=== PATIENT | female | born 1935 | race Caucasian/White ===

== ENCOUNTER 2017-04-24 08:21 | Observation (INO) ==
[2017-04-24 09:31] LABS: Basophils % 0.4 % (0.0-0.8); Eosinophils # 0.1 10*3/uL (0.0-0.87); Eosinophils % 1.4 % (0.00-10.9); Hematocrit 36.5 VOL% (35.7-47.0); Hemoglobin 12.3 GM/DL (12.0-16.0); Immature Granulocytes % 0.5 %; Immature Granulocytes Absolute 0.04 #; Lymphocytes # 1.7 10*3/uL (1.4-4.0); Lymphocytes % 21.8 % (21.3-54.2); Mean Corpuscular HGB Conc 33.7 GM/DL (32-36); Mean Corpuscular Hemoglobin 31 PG (27-34); Mean Corpuscular Volume 91.3 FL (87-102); Mean Platelet Volume 9.1 FL (9.6-12.0); Monocytes # 0.7 10*3/uL (0.11-0.8); Neutrophils # 5.3 10*3/uL (1.4-7.4); Neutrophils % 66.9 % (38.7-73.9); Platelet Count 430 T/CUMM (130-400); Red Cell Distribution Width 13.1 % (9.3-17.3); White Blood Count 7.9 T/CUMM (4-12)
[2017-04-24 09:40] LABS: INR 0.9; Partial Thromboplastin Time 23.3 SECS (0-40)
[2017-04-24 09:41] LABS: Apearance,Urine CLEAR (Clear); Bilirubin,Urine Negative (Negative); Blood, Urine Small mg/dL (Negative); Glucose,Urine (UA) Negative (Negative); Ketones,Urine Negative (Negative); Nitrite,Urine Negative (Negative); Protein,Urine Negative; RBC,Urine <1 /HPF (0-4); Squamous Epithelial Cell,Urine Occasional /HPF (0-10); Urine Color Straw (Yellow); Urine Specific Gravity 1.006 (1.001-1.035); Urine Urobilinogen < 2.0 EU/DL (0.2-1.0); WBC,Urine <1 /HPF (0-6)
[2017-04-24 09:44] LABS: Albumin 3.3 G/DL (3.4-5.0); Bilirubin,Total 0.6 MG/DL (0.2-1.0); Calcium 9.1 MG/DL (8.5-10.1); Osmolality,Calculated 276.7 MOS/KG (273-304); Potassium 4.2 MMOL/L (3.5-5.1); Total Protein 7.4 G/DL (6.4-8.3)
[2017-04-24] MEDS ORDERED: ASPIRIN 325 MG TABLET PO STA (12:40)
[2017-04-24] MEDS ORDERED: ASPIRIN 325 MG TABLET ONE (12:41)
[2017-04-24] MEDS ORDERED: TEMAZEPAM 7.5 MG CAPSULE PO PRN (14:09)
[2017-04-24] MEDS ORDERED: chlorproMAZINE INJ 50 MG in SODIUM CHLORIDE 0.9% 100 ML IV PRN (14:09)
[2017-04-24] MEDS ORDERED: LACTULOSE 20 GM/30 ML UDCUP PO PRN (14:09)
[2017-04-24] MEDS ORDERED: ALUMINUM/MAGNES/SIMETH MAX STR 30 ML UDCUP PO PRN (14:09)
[2017-04-24] MEDS ORDERED: LOPERAMIDE 2 MG CAPSULE PO PRN ×2 (14:09)
[2017-04-24] MEDS ORDERED: BENZTROPINE 2 MG/2 ML AMP IV PRN (14:09)
[2017-04-24] MEDS ORDERED: ACETAMINOPHEN 325 MG TABLET PO PRN (14:09)
[2017-04-24] MEDS ORDERED: MYLANTA/LIDO VISC 2:1 300 ML BOTTLE SWISH/SWAL PRN (14:09)
[2017-04-24] MEDS ORDERED: MYLANTA/LIDO VISC 2:1 300 ML BOTTLE SWISH/SPIT PRN (14:09)
[2017-04-24] MEDS ORDERED: diphenhydrAMINE CAP 25 MG CAPSULE PO PRN (14:09)
[2017-04-24] MEDS ORDERED: guaiFENesin 200 MG/10 ML UDCUP PO PRN (14:09)
[2017-04-24] MEDS ORDERED: ALPRAZolam 0.25 MG TABLET PO PRN (14:09)
[2017-04-24] MEDS ORDERED: ONDANSETRON 4 MG/2 ML VIAL IV PRN (14:09)
[2017-04-24] MEDS ORDERED: chlorproMAZINE INJ 25 MG in SODIUM CHLORIDE 0.9% 100 ML IV PRN (14:09)
[2017-04-24] MEDS ORDERED: PROMETHAZINE INJ 25 MG in SODIUM CHLORIDE 0.9% 50 ML IV PRN (14:09)
[2017-04-24] MEDS ORDERED: chlorproMAZINE 25 MG TABLET PO PRN (14:09)
[2017-04-24] MEDS ORDERED: MAGNESIUM HYDROXIDE SUSP 30 ML UDCUP PO PRN (14:09)
[2017-04-24] MEDS: SODIUM CHLORIDE 0.9% 1,000 ML IV SCH (15:32)
[2017-04-24 16:26] LABS: Basophils % 0.3 % (0.0-0.8); Eosinophils # 0.1 10*3/uL (0.0-0.87); Eosinophils % 1.4 % (0.00-10.9); Hematocrit 35.4 VOL% (35.7-47.0); Hemoglobin 11.8 GM/DL (12.0-16.0); Immature Granulocytes % 0.3 %; Immature Granulocytes Absolute 0.02 #; Lymphocytes # 1.4 10*3/uL (1.4-4.0); Lymphocytes % 17.6 % (21.3-54.2); Mean Corpuscular HGB Conc 33.3 GM/DL (32-36); Mean Corpuscular Hemoglobin 30 PG (27-34); Mean Corpuscular Volume 90.5 FL (87-102); Monocytes # 0.8 10*3/uL (0.11-0.8); Monocytes % 10.1 % (1.7-12.7); Neutrophils # 5.4 10*3/uL (1.4-7.4); Neutrophils % 70.3 % (38.7-73.9); Platelet Count 441 T/CUMM (130-400); Red Blood Count 3.91 MC/CUMM (3.8-5.5); Red Cell Distribution Width 13.2 % (9.3-17.3); White Blood Count 7.7 T/CUMM (4-12)
[2017-04-24 18:08] LABS: Albumin 3.3 G/DL (3.4-5.0); Bilirubin,Total 0.6 MG/DL (0.2-1.0); Calcium 9.3 MG/DL (8.5-10.1); Magnesium 2.5 MG/DL (1.8-2.4); Osmolality,Calculated 279.4 MOS/KG (273-304); Potassium 3.5 MMOL/L (3.5-5.1); Total Protein 7.5 G/DL (6.4-8.3); Uric Acid 2.3 MG/DL (2.6-6.0)
[2017-04-25] MEDS: SODIUM CHLORIDE 0.9% 1,000 ML IV SCH (05:32)
[2017-04-25] MEDS ORDERED: hydrOXYzine HCL 25 MG TABLET PO PRN (08:41)
[2017-04-25] MEDS ORDERED: Aspirin/Sod Bicarb/Citric Acid [Alka-Seltzer Original Tab Eff] 1 PO PRN (08:41)
[2017-04-25] MEDS ORDERED: ASCORBIC ACID 500 MG TABLET PO SCH (09:00)
[2017-04-25] MEDS ORDERED: Erlotinib Hcl [Tarceva] 100 MG PO SCH (09:00)
[2017-04-25] MEDS ORDERED: ALBUTEROL 2.5 MG/3 ML NEB RESP TX PRN (09:00)
[2017-04-25] MEDS ORDERED: ASPIRIN 325 MG TABLET PO SCH (09:00)
[2017-04-25] MEDS ORDERED: Flaxseed Oil [Flaxseed Oil] 1,000 MG PO SCH (09:00)
[2017-04-25] MEDS ORDERED: HEPARIN LOCK FLUSH 500 UNIT/5 ML SYRINGE IV ONE (09:15)
[2017-04-25] MEDS ORDERED: IPRATROPIUM 500 MCG/2.5 ML NEB RESP TX SCH (12:00)
[2017-04-25 12:29] VITALS: BP 143/65
[2017-04-25] MEDS ORDERED: ATORVASTATIN 10 MG TABLET PO SCH (21:00)
[2017-04-25] MEDS ORDERED: ACETAMINOPHEN 500 MG TABLET PO SCH (21:00)
== END 2017-04-25 16:55 | disposition home or self-care (01) ==
LOC: N.ED 08:21 → N.EDINP 08:21 → N.4E 13:53
PROVIDERS: ADMIT Specialist; ATTEND Specialist

== ENCOUNTER 2018-03-13 10:30 | Inpatient (IN) ==
[2018-03-13 11:52] LABS: Basophils % 0.2 % (0.0-0.8); Eosinophils # 0.1 10*3/uL (0.0-0.87); Eosinophils % 0.6 % (0.00-10.9); Hematocrit 29.6 VOL% (35.7-47.0); Hemoglobin 9.4 GM/DL (12.0-16.0); Immature Granulocytes % 0.4 %; Immature Granulocytes Absolute 0.05 #; Lymphocytes # 0.6 10*3/uL (1.4-4.0); Lymphocytes % 4.8 % (21.3-54.2); Mean Corpuscular HGB Conc 31.8 GM/DL (32-36); Mean Corpuscular Hemoglobin 28 PG (27-34); Mean Corpuscular Volume 87.1 FL (87-102); Mean Platelet Volume 9.6 FL (9.6-12.0); Monocytes # 0.7 10*3/uL (0.11-0.8); Monocytes % 5.6 % (1.7-12.7); Neutrophils # 10.2 10*3/uL (1.4-7.4); Neutrophils % 88.4 % (38.7-73.9); Platelet Count 485 T/CUMM (130-400); Red Cell Distribution Width 15.1 % (9.3-17.3); White Blood Count 11.6 T/CUMM (4-12)
[2018-03-13 12:14] LABS: Hypochromasia 1+
[2018-03-13 12:15] LABS: Platelet Estimate Adequate
[2018-03-13 12:37] LABS: Albumin 2.8 G/DL (3.4-5.0); Bilirubin,Total 0.4 MG/DL (0.2-1.0); Calcium 8.7 MG/DL (8.5-10.1); Osmolality,Calculated 279.4 MOS/KG (273-304); Potassium 3.6 MMOL/L (3.5-5.1); Total Protein 6.5 G/DL (6.4-8.3)
[2018-03-13 12:52] LABS: INR 1.1; PT Patient Result 11.1 SECS
[2018-03-13 12:58] LABS: Partial Thromboplastin Time 51.2 SECS (0-40)
[2018-03-13 13:43] LABS: ABG Base Excess 11.8 MMOL/L (-2.5-2.5); ABG HCO3 35.5 MMOL/L (20-26); ABG Oxygen Saturation 97.1 % (95-100); ABG PO2 92.3 MM HG (80-95); ABG TCO2 37.2 MMOL/L (23-27)
[2018-03-13] MEDS ORDERED: guaiFENesin 200 MG/10 ML UDCUP PO PRN (14:30)
[2018-03-13] MEDS ORDERED: chlorproMAZINE INJ 50 MG in SODIUM CHLORIDE 0.9% 100 ML IV PRN (14:30)
[2018-03-13] MEDS ORDERED: traMADol 50 MG TABLET PO PRN (14:30)
[2018-03-13] MEDS ORDERED: BENZTROPINE 2 MG/2 ML AMP IV PRN (14:30)
[2018-03-13] MEDS ORDERED: TEMAZEPAM 7.5 MG CAPSULE PO PRN (14:30)
[2018-03-13] MEDS ORDERED: MYLANTA/LIDO VISC 2:1 300 ML BOTTLE SWISH/SWAL PRN (14:30)
[2018-03-13] MEDS ORDERED: chlorproMAZINE 25 MG TABLET PO PRN (14:30)
[2018-03-13] MEDS ORDERED: MAGNESIUM HYDROXIDE SUSP 30 ML UDCUP PO PRN (14:30)
[2018-03-13] MEDS ORDERED: LACTULOSE 20 GM/30 ML UDCUP PO PRN (14:30)
[2018-03-13] MEDS ORDERED: MYLANTA/LIDO VISC 2:1 300 ML BOTTLE SWISH/SPIT PRN (14:30)
[2018-03-13] MEDS ORDERED: chlorproMAZINE INJ 25 MG in SODIUM CHLORIDE 0.9% 100 ML IV PRN (14:30)
[2018-03-13] MEDS ORDERED: ALUMINUM/MAGNES/SIMETH MAX STR 30 ML UDCUP PO PRN (14:30)
[2018-03-13] MEDS ORDERED: diphenhydrAMINE CAP 25 MG CAPSULE PO PRN (14:30)
[2018-03-13] MEDS ORDERED: PROMETHAZINE INJ 25 MG in SODIUM CHLORIDE 0.9% 50 ML IV PRN (14:30)
[2018-03-13] MEDS ORDERED: LOPERAMIDE 2 MG CAPSULE PO PRN ×2 (14:30)
[2018-03-13] MEDS ORDERED: ACETAMINOPHEN 325 MG TABLET PO PRN ×2 (14:30)
[2018-03-13] MEDS ORDERED: DOCUSATE SODIUM 100 MG CAPSULE PO PRN (14:30)
[2018-03-13] MEDS ORDERED: PREGABALIN 50 MG CAPSULE PO PRN (14:36)
[2018-03-13] MEDS ORDERED: ALBUTEROL 2.5 MG/3 ML NEB RESP TX PRN (14:36)
[2018-03-13 15:22] LABS: Uric Acid 1.1 MG/DL (2.6-6.0)
[2018-03-13] MEDS: VANCOMYCIN INJ 500 MG in SODIUM CHLORIDE 0.9% 100 ML IV SCH (17:41)
[2018-03-13] MEDS: ALPRAZolam 0.25 MG TABLET PO PRN (17:45)
[2018-03-13] MEDS ORDERED: ALBUTEROL/IPRATROPIUM 3 ML NEB RESP TX SCH (18:00)
[2018-03-13] MEDS: methylPREDNISolone SOD SUC 40 MG/1 ML VIAL IV SCH (18:35)
[2018-03-13] MEDS: IPRATROPIUM 500 MCG/2.5 ML NEB RESP TX SCH (19:47)
[2018-03-13] MEDS: ATORVASTATIN 10 MG TABLET PO SCH (20:53)
[2018-03-13] MEDS: PIPERACILLIN/TAZOBACTAM 3,375 MG in SODIUM CHLORIDE 0.9% 100 ML IV SCH (20:53)
[2018-03-13] MEDS: ENOXAPARIN 40 MG/0.4 ML SYRINGE SUBCUT SCH (20:53)
[2018-03-13] MEDS: ALBUTEROL/IPRATROPIUM 3 ML NEB RESP TX SCH (23:00)
[2018-03-14] MEDS: ALBUTEROL/IPRATROPIUM 3 ML NEB RESP TX SCH ×6 (03:17→23:57)
[2018-03-14] MEDS: IPRATROPIUM 500 MCG/2.5 ML NEB RESP TX SCH ×2 (03:18→11:03)
[2018-03-14] MEDS: methylPREDNISolone SOD SUC 40 MG/1 ML VIAL IV SCH ×3 (03:37→18:34)
[2018-03-14] MEDS: PIPERACILLIN/TAZOBACTAM 3,375 MG in SODIUM CHLORIDE 0.9% 100 ML IV SCH ×3 (03:38→20:42)
[2018-03-14] MEDS: ONDANSETRON 4 MG/2 ML VIAL IV PRN (03:45)
[2018-03-14 07:00] LABS: Basophils % 0.1 % (0.0-0.8); Hematocrit 27.1 VOL% (35.7-47.0); Hemoglobin 8.4 GM/DL (12.0-16.0); Immature Granulocytes % 0.5 %; Immature Granulocytes Absolute 0.04 #; Lymphocytes # 0.4 10*3/uL (1.4-4.0); Lymphocytes % 5.3 % (21.3-54.2); Mean Corpuscular Hemoglobin 28 PG (27-34); Mean Corpuscular Volume 88.9 FL (87-102); Mean Platelet Volume 9.7 FL (9.6-12.0); Monocytes # 0.4 10*3/uL (0.11-0.8); Monocytes % 4.3 % (1.7-12.7); Neutrophils # 7.3 10*3/uL (1.4-7.4); Neutrophils % 89.8 % (38.7-73.9); Platelet Count 445 T/CUMM (130-400); Red Blood Count 3.05 MC/CUMM (3.8-5.5); White Blood Count 8.2 T/CUMM (4-12)
[2018-03-14 07:34] LABS: Albumin 2.3 G/DL (3.4-5.0); Bilirubin,Total 0.6 MG/DL (0.2-1.0); Calcium 7.6 MG/DL (8.5-10.1); Osmolality,Calculated 284.1 MOS/KG (273-304); Potassium 3.8 MMOL/L (3.5-5.1); Risk Ratio 2.2; Total Protein 5.3 G/DL (6.4-8.3); VLDL CHOLESTEROL 17.2 MG/DL
[2018-03-14] MEDS: VANCOMYCIN INJ 500 MG in SODIUM CHLORIDE 0.9% 100 ML IV SCH ×2 (08:16→18:34)
[2018-03-14] MEDS ORDERED: Erlotinib Hcl [Tarceva] 100 MG PO SCH (09:00)
[2018-03-14] MEDS: predniSONE 10 MG TABLET PO SCH (09:55)
[2018-03-14] MEDS: PANTOPRAZOLE 40 MG TABLET PO SCH (10:00)
[2018-03-14] MEDS: hydrOXYzine HCL 25 MG TABLET PO SCH (10:00)
[2018-03-14] MEDS ORDERED: FUROSEMIDE 20 MG/2 ML VIAL IM ONE (10:48)
[2018-03-14] MEDS: ASPIRIN 325 MG TABLET PO SCH (11:49)
[2018-03-14] MEDS: DEXTROSE 5% NACL 0.45% 1,000 ML IV SCH (19:21)
[2018-03-14] MEDS: ALPRAZolam 0.25 MG TABLET PO PRN (20:57)
[2018-03-14] MEDS: ENOXAPARIN 40 MG/0.4 ML SYRINGE SUBCUT SCH (20:58)
[2018-03-14] MEDS: ATORVASTATIN 10 MG TABLET PO SCH (20:58)
[2018-03-15] MEDS ORDERED: NITROGLYCERIN SL 0.4 MG TABLET SL ONE ×2 (00:44→00:45)
[2018-03-15] MEDS ORDERED: NITROGLYCERIN SL 0.4 MG TABLET SL PRN (00:49)
[2018-03-15 01:58] LABS: Basophils % 0.1 % (0.0-0.8); Hematocrit 26.5 VOL% (35.7-47.0); Hemoglobin 8.3 GM/DL (12.0-16.0); Immature Granulocytes % 0.5 %; Immature Granulocytes Absolute 0.08 #; Lymphocytes # 0.3 10*3/uL (1.4-4.0); Lymphocytes % 2.1 % (21.3-54.2); Mean Corpuscular HGB Conc 31.3 GM/DL (32-36); Mean Corpuscular Hemoglobin 28 PG (27-34); Mean Corpuscular Volume 87.7 FL (87-102); Mean Platelet Volume 9.5 FL (9.6-12.0); Monocytes # 0.9 10*3/uL (0.11-0.8); Monocytes % 5.7 % (1.7-12.7); Neutrophils # 13.9 10*3/uL (1.4-7.4); Neutrophils % 91.6 % (38.7-73.9); Platelet Count 469 T/CUMM (130-400); Red Blood Count 3.02 MC/CUMM (3.8-5.5); Red Cell Distribution Width 15.1 % (9.3-17.3); White Blood Count 15.1 T/CUMM (4-12)
[2018-03-15 02:16] LABS: Albumin 2.6 G/DL (3.4-5.0); Bilirubin,Total 0.7 MG/DL (0.2-1.0); Calcium 8.4 MG/DL (8.5-10.1); Osmolality,Calculated 284.5 MOS/KG (273-304)
[2018-03-15 02:17] LABS: Troponin I 0.015 NG/ML (0.00-0.045)
[2018-03-15] MEDS: methylPREDNISolone SOD SUC 40 MG/1 ML VIAL IV SCH ×3 (02:18→18:00)
[2018-03-15 03:09] LABS: Band Neutrophils 3 % (0-10); Lymphocytes 6 % (20-55); Platelet Estimate Normal; Segmented Neutrophils 89 % (50-85); Total Cells Counted 100
[2018-03-15] MEDS: PIPERACILLIN/TAZOBACTAM 3,375 MG in SODIUM CHLORIDE 0.9% 100 ML IV SCH ×3 (03:19→20:10)
[2018-03-15] MEDS: LEVALBUTEROL 1.25 MG/3 ML NEB RESP TX SCH ×6 (03:46→23:42)
[2018-03-15] MEDS: VANCOMYCIN INJ 500 MG in SODIUM CHLORIDE 0.9% 100 ML IV SCH ×2 (07:30→18:00)
[2018-03-15] MEDS: PANTOPRAZOLE 40 MG TABLET PO SCH (09:01)
[2018-03-15] MEDS: hydrOXYzine HCL 25 MG TABLET PO SCH (09:01)
[2018-03-15] MEDS: predniSONE 10 MG TABLET PO SCH (09:01)
[2018-03-15] MEDS: ASPIRIN 325 MG TABLET PO SCH (13:15)
[2018-03-15] MEDS: DEXTROSE 5% NACL 0.45% 1,000 ML IV SCH (16:25)
[2018-03-15] MEDS: ENOXAPARIN 40 MG/0.4 ML SYRINGE SUBCUT SCH (20:13)
[2018-03-15] MEDS: ATORVASTATIN 10 MG TABLET PO SCH (20:14)
[2018-03-15] MEDS: ALPRAZolam 0.25 MG TABLET PO PRN (20:16)
[2018-03-15] MEDS: ONDANSETRON 4 MG/2 ML VIAL IV PRN (20:16)
[2018-03-16] MEDS: methylPREDNISolone SOD SUC 40 MG/1 ML VIAL IV SCH ×3 (01:47→18:14)
[2018-03-16] MEDS: VANCOMYCIN INJ 500 MG in SODIUM CHLORIDE 0.9% 100 ML IV SCH ×3 (01:47→18:15)
[2018-03-16] MEDS: LEVALBUTEROL 1.25 MG/3 ML NEB RESP TX SCH ×6 (03:39→22:34)
[2018-03-16] MEDS: PIPERACILLIN/TAZOBACTAM 3,375 MG in SODIUM CHLORIDE 0.9% 100 ML IV SCH ×3 (04:00→20:36)
[2018-03-16 05:21] LABS: Basophils % 0.1 % (0.0-0.8); Hematocrit 26.7 VOL% (35.7-47.0); Hemoglobin 8.3 GM/DL (12.0-16.0); Immature Granulocytes % 0.7 %; Immature Granulocytes Absolute 0.09 #; Lymphocytes # 0.3 10*3/uL (1.4-4.0); Lymphocytes % 2.1 % (21.3-54.2); Mean Corpuscular HGB Conc 31.1 GM/DL (32-36); Mean Corpuscular Hemoglobin 27 PG (27-34); Mean Corpuscular Volume 87.5 FL (87-102); Mean Platelet Volume 9.4 FL (9.6-12.0); Monocytes # 0.5 10*3/uL (0.11-0.8); Monocytes % 3.8 % (1.7-12.7); Neutrophils % 93.3 % (38.7-73.9); Platelet Count 447 T/CUMM (130-400); Red Blood Count 3.05 MC/CUMM (3.8-5.5); Red Cell Distribution Width 15.3 % (9.3-17.3); White Blood Count 12.8 T/CUMM (4-12)
[2018-03-16 05:49] LABS: Albumin 2.5 G/DL (3.4-5.0); Bilirubin,Total 0.7 MG/DL (0.2-1.0); Calcium 8.6 MG/DL (8.5-10.1); Osmolality,Calculated 282.4 MOS/KG (273-304); Total Protein 5.8 G/DL (6.4-8.3)
[2018-03-16 05:56] LABS: Band Neutrophils 1 % (0-10); Lymphocytes 2 % (20-55); Platelet Estimate Normal; Segmented Neutrophils 97 % (50-85); Total Cells Counted 100
[2018-03-16] MEDS: predniSONE 10 MG TABLET PO SCH (08:48)
[2018-03-16] MEDS: PANTOPRAZOLE 40 MG TABLET PO SCH (08:48)
[2018-03-16] MEDS: hydrOXYzine HCL 25 MG TABLET PO SCH (08:52)
[2018-03-16] MEDS: ASPIRIN 325 MG TABLET PO SCH (11:29)
[2018-03-16] MEDS: DEXTROSE 5% NACL 0.45% 1,000 ML IV SCH (18:14)
[2018-03-16] MEDS: ENOXAPARIN 40 MG/0.4 ML SYRINGE SUBCUT SCH (20:41)
[2018-03-16] MEDS: ATORVASTATIN 10 MG TABLET PO SCH (20:43)
[2018-03-16] MEDS: ALPRAZolam 0.25 MG TABLET PO PRN (20:43)
[2018-03-17] MEDS: VANCOMYCIN INJ 500 MG in SODIUM CHLORIDE 0.9% 100 ML IV SCH ×3 (01:34→18:02)
[2018-03-17] MEDS: methylPREDNISolone SOD SUC 40 MG/1 ML VIAL IV SCH ×3 (01:37→18:01)
[2018-03-17] MEDS: ALPRAZolam 0.25 MG TABLET PO PRN ×2 (01:40→12:54)
[2018-03-17] MEDS: LEVALBUTEROL 1.25 MG/3 ML NEB RESP TX SCH ×6 (02:51→23:20)
[2018-03-17] MEDS: PIPERACILLIN/TAZOBACTAM 3,375 MG in SODIUM CHLORIDE 0.9% 100 ML IV SCH ×3 (05:04→23:22)
[2018-03-17] MEDS: predniSONE 10 MG TABLET PO SCH (10:45)
[2018-03-17] MEDS: PANTOPRAZOLE 40 MG TABLET PO SCH (10:45)
[2018-03-17] MEDS: hydrOXYzine HCL 25 MG TABLET PO SCH (10:47)
[2018-03-17] MEDS: ASPIRIN 325 MG TABLET PO SCH ×2 (12:55→13:08)
[2018-03-17] MEDS: ONDANSETRON 4 MG/2 ML VIAL IV PRN (13:06)
[2018-03-17] MEDS: DEXTROSE 5% NACL 0.45% 1,000 ML IV SCH (16:51)
[2018-03-17] MEDS: ATORVASTATIN 10 MG TABLET PO SCH (23:21)
[2018-03-17] MEDS: ENOXAPARIN 40 MG/0.4 ML SYRINGE SUBCUT SCH (23:21)
[2018-03-18] MEDS ORDERED: FUROSEMIDE 40 MG/4 ML VIAL ONE (02:08)
[2018-03-18] MEDS ORDERED: MORPHINE 4 MG/1 ML VIAL ONE (02:08)
[2018-03-18] MEDS: LEVALBUTEROL 1.25 MG/3 ML NEB RESP TX SCH ×5 (02:10→19:06)
[2018-03-18] MEDS ORDERED: diphenhydrAMINE 50 MG/1 ML VIAL ONE (02:12)
[2018-03-18] MEDS ORDERED: FAMOTIDINE INJ 40 MG in SODIUM CHLORIDE 0.9% 100 ML IV ONE (02:15)
[2018-03-18] MEDS ORDERED: ONDANSETRON 4 MG/2 ML VIAL IV ONE (02:15)
[2018-03-18] MEDS ORDERED: FUROSEMIDE 20 MG/2 ML VIAL IV ONE (02:15)
[2018-03-18] MEDS ORDERED: FAMOTIDINE 20 MG/2 ML VIAL IV ONE ×2 (02:15→02:30)
[2018-03-18] MEDS ORDERED: MORPHINE 4 MG/1 ML VIAL IV ONE (02:15)
[2018-03-18] MEDS ORDERED: diphenhydrAMINE 50 MG/1 ML VIAL IV ONE (02:16)
[2018-03-18 03:04] LABS: Calcium 8.9 MG/DL (8.5-10.1); Osmolality,Calculated 282.5 MOS/KG (273-304); Potassium 4.7 MMOL/L (3.5-5.1)
[2018-03-18] MEDS: methylPREDNISolone SOD SUC 40 MG/1 ML VIAL IV SCH ×3 (03:30→17:33)
[2018-03-18] MEDS: VANCOMYCIN INJ 500 MG in SODIUM CHLORIDE 0.9% 100 ML IV SCH ×3 (05:28→17:33)
[2018-03-18] MEDS: PIPERACILLIN/TAZOBACTAM 3,375 MG in SODIUM CHLORIDE 0.9% 100 ML IV SCH ×2 (06:29→18:40)
[2018-03-18] MEDS ORDERED: HYDROmorphone 2 MG/1 ML VIAL IV PRN (15:12)
[2018-03-18] MEDS ORDERED: NALOXONE 0.4 MG/ML VIAL ONE ×2 (16:13→16:17)
[2018-03-18] MEDS ORDERED: NALOXONE 0.4 MG/ML VIAL IV ONE ×2 (16:15→16:20)
[2018-03-18] MEDS: PANTOPRAZOLE 40 MG TABLET PO SCH (16:51)
[2018-03-18] MEDS: ASPIRIN 325 MG TABLET PO SCH (16:51)
[2018-03-18] MEDS: hydrOXYzine HCL 25 MG TABLET PO SCH (17:21)
[2018-03-18] MEDS: predniSONE 10 MG TABLET PO SCH (17:21)
[2018-03-18] MEDS: ATORVASTATIN 10 MG TABLET PO SCH (20:32)
[2018-03-18] MEDS: ENOXAPARIN 40 MG/0.4 ML SYRINGE SUBCUT SCH (21:10)
[2018-03-18 22:41] LABS: Apearance,Urine CLOUDY (Clear); Bilirubin,Urine Negative (Negative); Blood, Urine Large mg/dL (Negative); Glucose,Urine (UA) Negative (Negative); Ketones,Urine Negative (Negative); Mucus,Urine Occasional /LPF (Occasional); Nitrite,Urine Negative (Negative); Protein,Urine Negative; RBC,Urine 1 /HPF (0-4); Squamous Epithelial Cell,Urine Occasional /HPF (0-10); Urine Color Yellow (Yellow); Urine Urobilinogen < 2.0 EU/DL (0.2-1.0); WBC,Urine 36 /HPF (0-6)
[2018-03-19] MEDS: LEVALBUTEROL 1.25 MG/3 ML NEB RESP TX SCH ×7 (00:23→22:51)
[2018-03-19] MEDS: VANCOMYCIN INJ 500 MG in SODIUM CHLORIDE 0.9% 100 ML IV SCH ×2 (01:42→10:06)
[2018-03-19] MEDS: fentaNYL 100 MCG/2 ML VIAL IV PRN ×2 (02:32→09:58)
[2018-03-19] MEDS: methylPREDNISolone SOD SUC 40 MG/1 ML VIAL IV SCH ×2 (02:46→10:06)
[2018-03-19] MEDS: PIPERACILLIN/TAZOBACTAM 3,375 MG in SODIUM CHLORIDE 0.9% 100 ML IV SCH (02:49)
[2018-03-19] MEDS ORDERED: VANCOMYCIN INJ 500 MG in SODIUM CHLORIDE 0.9% 100 ML IV SCH (06:00)
[2018-03-19] MEDS: PANTOPRAZOLE 40 MG TABLET PO SCH (10:06)
[2018-03-19] MEDS ORDERED: LORazepam 2 MG/1 ML VIAL ONE (11:04)
[2018-03-19] MEDS: LORazepam 2 MG/1 ML VIAL IV PRN ×2 (11:06→17:24)
[2018-03-20] MEDS: LORazepam 2 MG/1 ML VIAL IV PRN ×3 (00:01→14:09)
[2018-03-20] MEDS: LEVALBUTEROL 1.25 MG/3 ML NEB RESP TX SCH ×6 (02:39→22:59)
[2018-03-20] MEDS: ONDANSETRON 4 MG/2 ML VIAL IV PRN (09:18)
[2018-03-20] MEDS: fentaNYL 100 MCG/2 ML VIAL IV PRN (18:42)
[2018-03-21] MEDS: LORazepam 2 MG/1 ML VIAL IV PRN ×2 (00:27→06:16)
[2018-03-21] MEDS: LEVALBUTEROL 1.25 MG/3 ML NEB RESP TX SCH ×5 (02:55→19:34)
[2018-03-21] MEDS: fentaNYL 100 MCG/2 ML VIAL IV PRN ×3 (03:41→12:30)
[2018-03-21 12:11] VITALS: BP 112/51
== END 2018-03-22 00:54 | disposition expired | DRG 193 ==
LOC: N.ED 10:30 → SUATTDRO 14:30 → N.EDINP 14:30 → N.5E 16:24 → N.CC 03-18 16:39 → N.5E 03-19 10:54
PROVIDERS: ADMIT Internal Medicine